=== PATIENT | male | born 1985 | race Caucasian/White ===

== ENCOUNTER 2019-11-14 18:48 | Emergency (ER) | payer BC, SELFPAY ==
[2019-11-14] VITALS (10 sets, daily range): BP systolic 112–118; BP diastolic 73–78; PULSE 60–83; RESP 12–17; TEMP 37.1; O2SAT 97–100; BMI 24.5
--- NOTE | 2019-11-14 19:08 | RAD_ITS ---
STUDY: X-RAY - RIGHT FEMUR REASON FOR STUDY: Male, 34 years old. pt fell off a ladder TECHNIQUE: 2 view(s) of the femur. COMPARISON: None. FINDINGS: The femur is intact and located. There is a patellar fracture. Metallic screw foreign body projects over the right lateral thigh soft tissues. It is unclear if this is external to the patient. RAD/Femur Min 2 Views IMPRESSION: Intact femur. Patella fracture. Electronically Signed: Tere Gallegos, at 20:02 EDT Tel , Service support ,
--- NOTE | 2019-11-14 19:08 | RAD_ITS ---
STUDY: X-RAY - RIGHT KNEE REASON FOR EXAM: Male, 34 years old. pt fell off a ladder TECHNIQUE: 3 view(s) of the knee. COMPARISON: None. FINDINGS: Patella is fractured into 2 fragments, the larger one displaced superiorly and the smaller one displaced inferiorly with wide separation. Distal femur, proximal tibia and fibula are intact and located. RAD/Knee 1 or 2 Views IMPRESSION: Widely patellar fracture. Electronically Signed: Tere Gallegos, at 20:00 EDT Tel , Service support ,
--- NOTE | 2019-11-14 19:08 | RAD_ITS ---
STUDY: X-RAY - PELVIS REASON FOR EXAM: Male, 34 years old. Trauma fall TECHNIQUE: One view of the pelvis was obtained. COMPARISON: None. FINDINGS: The bones of the pelvis are intact and located. RAD/Pelvis 1 or 2 Views IMPRESSION: Normal pelvis. Electronically Signed: Tere Gallegos, at 20:03 EDT Tel , Service support ,
[2019-11-14] MEDS: 0.9% Normal Saline 1,000 ML 999 ML IV (19:15)
[2019-11-14] MEDS: Midazolam 2 MG/2 ML Syringe IV (19:21)
[2019-11-14] MEDS: Propofol 200 MG/20 ML Vial 40 MG IV BOLUS (19:21)
[2019-11-14] MEDS: fentaNYL 100 MCG/2 ML Ampul 50 MCG IV ×2 (19:21→19:25)
[2019-11-14] MEDS: Propofol 200 MG/20 ML Vial 20 MG IV BOLUS (19:25)
--- NOTE | 2019-11-14 20:08 | ED.VIS.GEN ---
History of Present Illness Chief Complaint: Fall Informant: Patient, Family Onset: Today Maximum Severity: Moderate Narrative: Fell off ladder right knee injury he was on a ladder about 12 to 15 feet up it moved he fell striking his knee right has right knee pain no head neck chest or abdominal pain no other extremity pain brought in by EMS Holding his knee in the flexed position his patella seems to be very high riding he denies numbness weakness paresthesias to the foot just pain in the right knee he has no past history no medications Past Medical History - Allergies and Home Meds Allergies/Adverse Reactions: Allergies Penicillins Allergy (Verified 11/14/19 18:49) Hives Primary Care Physician: Haris Contreras MD [Primary Care Provider] - Past Medical History: None Smoking Status: Never smoker Review of Systems General: Denies: Chills, Fever, Sweats Eyes: Denies: Visual changes - bilaterally, Diplopia ENT: Denies: Rhinorrhea, Sore throat Cardiovascular: Denies: Chest pain, Palpitations Respiratory: Denies: Dyspnea, Cough, Dyspnea on exertion Gastrointestinal: Denies: Abdominal pain, Nausea, Vomiting, Diarrhea, Melena, Hematochezia Genitourinary: Denies: Dysuria, Hematuria, Frequency Musculoskeletal: Reports: Extremity Pain. Denies: Back pain Skin: Denies: Rash, Wounds Neurological: Denies: Headache, Weakness, Numbness Physical Exam Vital Signs/Narrative: Vital Signs Temp Pulse Pulse Pulse Pulse Pulse Pulse 11/14/19 19:56 83 11/14/19 19:36 64 11/14/19 19:25 65 11/14/19 19:06 65 60 65 70 65 65 11/14/19 18:59 80 11/14/19 18:53 98.7 F 11/14/19 18:50 98.7 F 67 Resp Resp Resp Resp Resp Resp BP 11/14/19 19:56 17 118/73 11/14/19 19:36 14 118/74 11/14/19 19:25 12 118/74 11/14/19 19:06 15 15 12 13 15 14 112/77 11/14/19 18:59 15 112/77 11/14/19 18:53 11/14/19 18:50 14 117/73 BP BP BP BP BP Pulse Ox 11/14/19 19:56 100 11/14/19 19:36 100 11/14/19 19:25 100 11/14/19 19:06 112/77 117/73 118/74 118/73 118/74 97 11/14/19 18:59 100 11/14/19 18:53 100 11/14/19 18:50 100 General: Well nourished, Well developed, No Acute Distress Head: Normocephalic, Atraumatic Eyes: Perrl, EOMI ENT: Moist mucous membranes, No rhinorrhea Neck: Supple, Nontender Cardiovascular: Regular rate, Regular rhythm, No murmurs Respiratory: No distress, CTA bilaterally, Chest nontender Abdomen: Soft, Nontender, Nondistended, Normal bowel sounds Back: Nontender, Normal Inspection Extremities: - - On exam his physical exam is unremarkable except for the right knee he is holding it in flexion the patella appears very high riding, he has intact sensation to the distal tib-fib ankle and foot he can dorsi and plantarflex move his toes he is a strong dorsalis pedis pulse feet are well-perfused is her toes, Skin: Normal color, No rash Neurological: Alert, Oriented x3, Cranial nerves II-XII grossly intact, Normal Strength, Normal Sensation Psychological: Normal affect, Normal Mood Diagnostic/Tx/Re-eval - Medical Decision Making An x-ray was obtained that shows an obvious patellar fracture he was then underwent conscious sedation protocol hyperoxygenation then he was sedated and then we were able to basically straighten his knee and relocate the patella to a more normal position, he could not extend at the knee he did have some swelling and some slight instability but could not be fully tested due to pain, he had no obvious signs of a knee dislocation rather just a patellar dislocation his tib-fib ankle and foot showed full range of motion normal neurovascular function , X-rays per radiology note shows widely displaced patellar fracture tib-fib hip unremarkable see those reports Evaluation his neurologic status remains as above he is resting comfortably placed in knee immobilizer, explained to him the concept of all the above the fracture of the see orthopedics the concept of other occult injuries to the knee there is an apparent at this time and the need to follow-up orthopedics he agrees, understands as well, he is will be remained in a knee immobilizer crutches [place] for pain and he is referred to his own orthopedic surgeon or Dr. Chawla who is on-call for orthopedics he cannot extend the knee which would be expected given the fracture and there is no obvious signs of gross knee instability Home stable Final impression right knee patellar fracture and with displacement ED Disposition - Plan for ED Patient: Diagnosis: Patellar fracture Instructions: ED FRACTURE Patella Prescriptions: Hydrocodone/Acetaminophen [[place] 5-325 Tablet] 1 ea PO 4X/DAY #20 tab Prescription Printed Referrals: Haris Contreras MD [Primary Care Provider] - Phan Chawla MD [STAFF PHYSICIAN] -
--- NOTE | 2019-11-14 21:00 | ED.RN ---
PT GIVEN WRITTEN AND VERBAL DISCHARGE INSTRUCTIONS, AND USE OF CRUTCHES AND KNEE IMMOBILIZER. EDUCATED NOT TO DRIVE UNTIL FOLLOW UP WITH ORTHOPEDIC DR. PT IV D/C AND COVERED WITH 2X2 GAUZE AND PAPER TAPE. PRESSURE APPLIED TO SITE X 2 MINUTES. PT ASSISTED IN DRESSING AND ASSISTED INTO WHEELCHAIR AND THEN PLACED IN THE CAR. PT GIVEN EMESIS BAG FOR NAUSEA. PT AND EDUCATED AND DENIES ANY FURTHER QUESTIONS.
== END 2019-11-14 21:00 | disposition home or self-care (01) ==
LOC: ED 20:00
PROVIDERS: Emergency Provider Emergency Medicine; PCP Family Medicine
DX: S82.001A Unspecified fracture of right patella, initial encounter for closed fracture (principal); W11.XXXA Fall on and from ladder, initial encounter; Y93.89 Activity, other specified; Y92.89 Other specified places as the place of occurrence of the external cause; Y99.8 Other external cause status
CPT/HCPCS: 27599; 72170; 73552; 73560; 96361; 96374; 96375; 99285; J7030; A4216

== ENCOUNTER 2019-11-24 08:49 | Day surgery (SDC) | payer BC, SELFPAY ==
[2019-11-16 15:30] VITALS: BMI 21.7
[2019-11-24] VITALS (8 sets, daily range): BP systolic 97–119; BP diastolic 54–94; PULSE 61–91; RESP 16–18; TEMP 36.3–36.8; O2SAT 97–100; BMI 22.3
[2019-11-24] MEDS: Lactated Ringers 1,000 ML 100 ML IV ×2 (09:23→14:17)
[2019-11-24] MEDS: Cefazolin 2 GM in 0.9% Normal Saline 100 ML IV (12:05)
--- NOTE | 2019-11-24 12:15 | RAD_ITS ---
STUDY: X-RAY - RIGHT KNEE REASON FOR EXAM: Male, 34 years old. ORIF RIGHT PATELLA. TECHNIQUE: 2 view(s) of the knee. COMPARISON: Comparison is made with prior examination dated 11/14/2019. FINDINGS: Intraoperative imaging provided for ORIF of the comminuted fracture of the patella. RAD/Knee 1 or 2 Views IMPRESSION: Intraoperative imaging provided for ORIF of the comminuted fractured patella. Electronically Signed: Helder Joe, at 13:20 EDT , Service support ,
[2019-11-24] MEDS: Bupiv/Epi 0.5% Mpf 30 ML Vial (13:30)
--- NOTE | 2019-11-24 14:00 | PCM.HP.BLA ---
History and Physical Date of Admission: 11/24/19 Intake Vital Signs 11/16/19 Height 6 ft 1 in 11/16/19 Weight: 165 lb 11/16/19 BMI 21.7 11/16/19 BMI 24.5 Intake Visit Reasons: RIGHT KNEE Accompanied by: Spouse Is patient in pain?: Yes Pain scale (1-10): 5 Allergies Penicillins Allergy (Verified 11/16/19 15:29) Hives Medications Hydrocodone/Acetaminophen [[place] 5-325 Tablet] 1 ea PO 4X/DAY #20 tab 11/14/19 [Rx Confirmed 11/16/19] FOR[facility]LY [facility], [facility] Social History (Updated 11/16/19 @ 16:[address] Michael Esteban DO) household members: spouse, children housing: house Smoking Status: Never smoker alcohol intake: current what type of physical activity do you participate in: none do you feel safe at home: Yes HPI RIGHT KNEE: Details: Parts of this documentation were recorded by a scribe, this documentation accurately reflects the service provided and the decisions made by me, Dr. Michael Esteban DO 11/16/19 1523. FUNMILAYO RAHMAN is a 34 year old M here today to establish as a new patient in regards to his right patella. Patient fell off of a ladder while working in his barn onto concrete. DOI: 09/13/2019 at 5pm. Patient states he landed on his feet, denies head injury. Has been applying ice packs with some relief. Patient has been taking Ibruprofen q6-7hrs. Taking Vicodin prn, prescribed from [facility]. ROS Const Reports system reviewed and no additional complaints, except as docu, Denies chills, Denies fatigue, Denies fever(s), Denies weakness Card Reports system reviewed and no additional complaints, except as docu, Denies chest pain, Denies shortness of breath Resp Denies shortness of breath GI Reports system reviewed and no additional complaints, except as docu, Denies constipation, Denies incontinent of stools, Denies loose stools, Denies nausea, Denies vomiting Reports system reviewed and no additional complaints, except as docu, Denies urinary incontinence Musc Reports system reviewed and no additional complaints, except as docu, Reports joint pain, Reports joint swelling, Denies numbness, Denies stiffness, Denies tingling Skin/Breast Reports system reviewed and no additional complaints, except as docu, Denies dry skin, Denies redness, Denies lesions, Denies new lesions, Denies non-healing lesions, Denies itching, Denies rash, Denies skin ulcer, Denies sores, Denies wounds Neuro No numbness, No tingling, No weakness Endo Denies fatigue Ortho Exam Right Knee Date of injury: 11/14/19 Skin/Wound: Yes ecchymosis, Yes swelling KNEE: developing Fracture blistering on medial knee abrasion 2cmSuperficial without sign of infection Large joint effusion with hematoma Supplemental Info 11/14/2019 X-ray right knee: Displaced transverse patella fracture Assessment & Plan Problems 1. Closed displaced transverse fracture of right patella, initial encounter S82.031A Plan Personally reviewed x-rays and educated patient has a patella fracture. Explained that it is torn all the way through. Discussed and educated he needs surgery to be fixed. Keep using ice packs and keeping leg elevated. No NSAIDs, increases risk of bleeding. Reviewed the pre-operative plans with the patient. Risks and benefits of the procedure were fully explained, including but not limited to infection, neurovascular injury, continued pain, arthritis, stiffness, need for further surgery, re-injury, DVT, PE, general risks of anesthesia, and loss of limb or life. The patient understands all the risks and does wish to proceed with written consent. Explained repair technique.He will have postoperative restrictions Limit on bending the knee, can place weight on it right awayWith the knee in extension only. Will use a Bow brace for a few weeks. All questions answered. Patient in agreement of plan. Will schedule surgery for , 11/19/2019. Coding Level of Care Code Off vis,new,level 3 Diagnoses Closed displaced transverse fracture of right patella, initial encounter S82.031A ??Encounter type: initial encounter ??Fracture morphology: transverse ??Fracture type: closed ??Laterality: right ??Fracture alignment: displaced I have re-examined the patient. There are no clinical changes since date of exam
--- NOTE | 2019-11-24 14:00 | PCM.DC.ORTHO ---
Discharge Diet: No Restrictions Keep extremity elevated above heart level: Operative Extremity Call your doctor if you observe: Shortness of breath Additional Instructions: Ice and elevate next 7 days. Leave dressing on clean and dry for 72 hours postop. Remove dressing 72 hours postop for per first postoperative shower, use antibacterial soap and warm water may run over incision. Do not submerge incision in tub. There may be some clearish red drainage for several days. After shower reapply a dry dressing over incision. Okay to leave open to air if not draining but should not have incision rubbing on knee immobilizer without dressing between. encourage ankle and toe range of motion. Encourage active straight leg raise with knee immobilizer on. If you cannot perform active straight leg raise that is okay but abdon quad with leg extension is also helpful. Take prescriptions as prescribed. Do not bend knee until follow-up visit with Dr. Esteban. May remove knee immobilizer while leg is elevated and rested and in extension. If any questions please call I can always see you sooner than your postoperative appointment if needed. Allergies/Adverse Reactions: Allergies Penicillins Allergy (Verified 11/24/19 09:13) Hives Medications to take at Discharge Hydrocodone/Acetaminophen [[place] 5-325 Tablet] 1 ea PO 4X/DAY #20 tab 11/14/19 Acetaminophen [Tylenol Extra Strength] 1,000 mg PO Q6H #50 tab 11/24/19 Aspirin [Aspirin, Baby] 81 mg PO BID #30 tab 11/24/19 Cephalexin [Keflex] 1,000 mg PO Q8 #4 cap 11/24/19 Oxycodone [Oxyir] 5 mg PO Q4H PRN PRN #50 tab 11/24/19 The following prescriptions were given: Aspirin [Aspirin, Baby] 81 mg PO BID #30 tab Transmission Status: Sent to [facility] Cephalexin [Keflex] 1,000 mg PO Q8 #4 cap Transmission Status: Sent to [facility] Oxycodone [Oxyir] 5 mg PO Q4H PRN PRN #50 tab PRN Reason: Pain Score 6-10/10 Transmission Status: Sent to [facility] Acetaminophen [Tylenol Extra Strength] 1,000 mg PO Q6H #50 tab Transmission Status: Sent to [facility] Primary Care Physician: Care Physician,No Primary [Primary Care Provider] - Test Results: Test results from this visit will be discussed in further detail at your follow-up appointment, if applicable. Please Follow Up With: Michael Esteban DO - 2 weeks postop
--- NOTE | 2019-11-24 14:09 | PCM.OPRPT ---
Report of Operation Date of Procedure: 11/24/19 Description of Surgical Findings:: Preoperative diagnosis: Right knee transverse patella fracture Postoperative diagnosis: Right knee transverse patellar fracture with comminution of inferior fragment Procedure: ORIF patella Implant: Arthrex partially threaded cannulated 4 -0 blunt tipped compression screws with fiber tape tension band and cerclage wire Anesthesia: Spinal with postoperative femoral block EBL: 175 Tourniquet 60 minutes 300 mmHg Complications: None Condition: Stable to PACU Indication for procedure: 34-year-old male sustained a fall off of a ladder without landing directly on his knee he did have a forced extension moment upon landing sustaining a comminuted transverse patella fracture with retraction he did proceed to the emergency room department where a mid manipulation of his knee was performed by the ER he did follow-up in the office however he was significantly swollen and it was determined best to delay surgery a bit and work on swelling reduction with an iceman machine and he did do this and start swelling did progress nicely down we did discuss operative intervention for his injury which included ORIF risk benefits and alternatives were reviewed including risk of bleeding infection nerve, artery, bone, tissue damage, blood clot need for further surgery and continued pain. Procedure: Patient was met the preoperative holding area once again the operative extremity was then identified by both patient and physician was marked patient met by anesthesia spinal was placed by anesthesia patient brought back to the operating room transfer the operative table supine position a well-padded tourniquet was placed on the right upper thigh he was prepped and draped in the usual sterile fashion and a timeout was called to ensure the proper patient procedure extremity being contemplated. An Esmarch was used to exsanguinate the extremity and the tourniquet was inflated to 300 mmHg. A standard midline incision was performed through the skin and subcutaneous tissue blunt dissection was carried between the subcutaneous tissue and the joint capsule the medial and lateral lateral retinaculum were completely split from the injury along the joint line the patella fracture was with large amount of hematoma which was removed after hematoma was removed thorough irrigation of the knee was performed intra-articular investigation of the knee did not reveal any ACL injury or cartilage pathology medial and lateral collateral ligaments were felt to be stable up upon examination or anesthesia as well as ACL and PCL it was noted however that the inferior fragment of the patella was highly comminuted. We were still able to proceed with reduction of the fracture with palpation of the articular surface with a gloved finger and placement of 2 partially threaded 4 oh cannulated screws from distal to superior standard technique with a K wire and over drilling these and placing the cannulated screws over top of the K wires with compression checked under fluoroscopy a fiber tape was then passed through the cannulated screws and tied in a [id number] fashion this did provide excellent fixation due to the comminution however room a cerclage fiber #2 FiberWire was placed around the patella and the medial and lateral retinaculum was also repaired with [id number] FiberWire. 0 Vicryl was used to repair bursal tissue on top of the fiber tape to aid in coverage of knots. The knee was thoroughly irrigated with several liters of irrigation and was closed with 2-0 Vicryl in the subcutaneous tissues followed by logan in the skin followed by a Mepilex Ag dressing followed by a thigh-high ANMOL hose and a knee immobilizer. Patient tolerated procedure well all counts were correct patient brought back to the PACU in stable condition he will follow-up in 2 weeks he will be immobilized in extension until follow-up
[2019-11-24] MEDS: Cefazolin 1 GM/50 ML BAG IV (14:45)
== END 2019-11-24 16:52 | disposition home or self-care (01) ==
LOC: SDC 08:52 → AC 08:52
PROVIDERS: Anesthesiology; Referring Provider Orthopaedic Surgery; Visit Provider Orthopaedic Surgery
PROC: (CPT 27524; principal; 2019-11-24 11:15)
DX: S82.031A Displaced transverse fracture of right patella, initial encounter for closed fracture (principal); Z11.59 Encounter for screening for other viral diseases; W11.XXXA Fall on and from ladder, initial encounter; Y93.89 Activity, other specified; Y92.71 Barn as the place of occurrence of the external cause; Y99.8 Other external cause status
CPT/HCPCS: 01392; 27524; 73560; 76000; 87635; C1713; J7120; J2405; U0003

== ENCOUNTER 2020-01-11 08:30 | Outpatient (RCR) ==
[2019-12-07 07:43] VITALS: BMI 22.3
--- NOTE | 2019-12-28 09:23 | HP.PTEVAL ---
Patient's Visit Information FUNMILAYO RAHMAN is a 34 year old M referred to Physical Therapy by Dr. Michael Esteban DO with a diagnosis of ORIF Right Patella. Date of Evaluation: 12/28/19 Physical Therapist: Gertrude Streeter DPT - Visit Plan Frequency: 2x /Week Duration: 6 Weeks Plan: 1x a week for 4 weeks- focus on ROM- with home exercise program then when full ROM allowed by MD and strength order progress to 2-3x4 weeks for functional mobility. - Subjective Fell off a ladder Nov 13- and then Dr. Wen performed and ORIF of right patella 11/24/2019- outpatient surgery- headed home-NWB for a few days- started weight bearing while using crutches with straight leg. Saw 12/20 who gave him restrictions of 30 while walking and 60 while ambulating. He can bend 60 degrees without pain and can get there easily now- took a lot of work to get there. Pain level in the knee is not bad. Ibuprofen 2x a days. Worst: 2/10 Reports dull and achy with rare sharp shooting pains- hurts the worst at night- Sleep: disturbed- does not wear brace- pain is general around the knee cap- no radiating pain- No N/T in the toes. Best: 03/13 Nothing really aggravates it- Eases: sitting down and relaxing and ice. 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 This is his first major injury. Last x-rays were Saturday. PMHx: none Meds: Ibuprofen as needed. - Objective Posture: Fh, RS can correct with verbal cues. Gait: antalgic- decreased stance on the right LE with poor heel/toe pattern due to TROM Brace locked in extension. Palpation: not tender to touch. Observation: no s/s of infection- incision healing well. Girth: Left Patella: 42 cm 6 above: 45.5 cm Right Patella: 38 cm 6 above: 49 cm. HR/TR: able without incidence or discomfort. SLS: 5 sec then LOB on right 30 sec easily on left. Strength: Ankle: 5/5, Quad set: visible SLR: minimal lag, Hip: 4+/5. Sensation: diminished over incision- intact to gross touch - Goals Goal 1:: Patient will be I with HEP and progression Goal Time Frame: 4-6 Weeks Goal 2:: Patient will ambulate >300 feet with a normalized gait pattern Goal Time Frame: 4-6 Weeks Goal 3:: Patient will SLS for 30 sec without LOB Goal Time Frame: 4-6 Weeks Goal 4:: Patient quad will be within 1 cm of left Goal Time Frame: 4-6 Weeks - Rehabilitation Potential Physical Therapy Diagnosis: Patient presents with hypomobility- he has decreased ROM,strength, flex and muscular endurance leading to abnormal gait and increased and difficulty with ADL's. Rehabilitation Potential: Fair - Anticipated Interventions Patient/Client Instruction: Educate patient on: Benefits of Fitness Program Therapeutic Exercise to Include: Strength training, Endurance training, Balance training, Coordination, Agility training, Body mechanics, Postural training, Flexibilty training, Gait and locomotor training, Neuromotor development, Passive ROM, Active ROM, Dynamic Lumbar Stabilization, Scapular Strength/Stabilization For the Purpose of:: To improve muscle performance and motor function TENS: Yes Cryotherapy (ice pack, ice massage): Yes Thermo therapy (hot pack): Yes Ultrasound (thermal/non thermal): No Thank you for the opportunity to evaluate your patient. For Medicare and Medicare HMO plans, please review the plan of care and approve it. It will need to be FAXED BACK to us at [phone] for Medicare purposes. For Medicare only, by signing this I certify the plan of care. Please let me know if there are questions or concerns regarding this plan of care. Physician Signature: Date:
--- NOTE | 2019-12-28 09:25 | HP.PTEVAL ---
Patient's Visit Information FUNMILAYO RAHMAN is a 34 year old M referred to Physical Therapy by Dr. Michael Esteban DO with a diagnosis of ORIF Right Patella. Date of Evaluation: 12/28/19 Physical Therapist: Gertrude Streeter DPT - Visit Plan Frequency: 2x /Week Duration: 6 Weeks Plan: Per MD: Flexion 30 with ambulation, 60 at rest x2 weeks then Flexion 60 with ambulation 90 at rest for 2 weeks (12/21/2019). 1x a week for 4 weeks- focus on ROM- with home exercise program then when full ROM allowed by MD and strength order progress to 2-3x4 weeks for functional mobility. - Subjective Fell off a ladder Nov 13- and then Dr. Wen performed and ORIF of right patella 11/24/2019- outpatient surgery- headed home-[facility] for a few days- started weight bearing while using crutches with straight leg. Saw 12/20 who gave him restrictions of 30 while walking and 60 while ambulating. He can bend 60 degrees without pain and can get there easily now- took a lot of work to get there. Pain level in the knee is not bad. Ibuprofen 2x a days. Worst: 2/10 Reports dull and achy with rare sharp shooting pains- hurts the worst at night- Sleep: disturbed- does not wear brace- pain is general around the knee cap- no radiating pain- No N/T in the toes. Best: 1/10 Nothing really aggravates it- Eases: sitting down and relaxing and ice. 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 This is his first major injury. Last x-rays were Saturday. PMHx: none Meds: Ibuprofen as needed. - Objective Posture: Fh, RS can correct with verbal cues. Gait: antalgic- decreased stance on the right LE with poor heel/toe pattern due to TROM Brace locked in extension. Palpation: not tender to touch. Observation: no s/s of infection- incision healing well. Girth: Left Patella: 42 cm 6 above: 45.5 cm Right Patella: 38 cm 6 above: 49 cm. HR/TR: able without incidence or discomfort. SLS: 5 sec then LOB on right 30 sec easily on left. Strength: Ankle: 5/5, Quad set: visible SLR: minimal lag, Hip: 4+/5. Sensation: diminished over incision- intact to gross touch - Goals Goal 1:: Patient will be I with HEP and progression Goal Time Frame: 4-6 Weeks Goal 2:: Patient will ambulate >300 feet with a normalized gait pattern Goal Time Frame: 4-6 Weeks Goal 3:: Patient will SLS for 30 sec without LOB Goal Time Frame: 4-6 Weeks Goal 4:: Patient quad will be within 1 cm of left Goal Time Frame: 4-6 Weeks - Rehabilitation Potential Physical Therapy Diagnosis: Patient presents with hypomobility- he has decreased ROM,strength, flex and muscular endurance leading to abnormal gait and increased and difficulty with ADL's. Rehabilitation Potential: Fair - Anticipated Interventions Patient/Client Instruction: Educate patient on: Benefits of Fitness Program Therapeutic Exercise to Include: Strength training, Endurance training, Balance training, Coordination, Agility training, Body mechanics, Postural training, Flexibilty training, Gait and locomotor training, Neuromotor development, Passive ROM, Active ROM, Dynamic Lumbar Stabilization, Scapular Strength/Stabilization For the Purpose of:: To improve muscle performance and motor function TENS: Yes Cryotherapy (ice pack, ice massage): Yes Thermo therapy (hot pack): Yes Ultrasound (thermal/non thermal): No Thank you for the opportunity to evaluate your patient. For Medicare and Medicare HMO plans, please review the plan of care and approve it. It will need to be FAXED BACK to us at [phone] for Medicare purposes. For Medicare only, by signing this I certify the plan of care. Please let me know if there are questions or concerns regarding this plan of care. Physician Signature: Date:
--- NOTE | 2020-03-09 11:06 | HP.PT.NRP ---
FUNMILAYO RAHMAN was seen in my office for initial evaluation on 12/28/19. The following Plan of Care was established for this patient: Initial Frequency: 2x /Week Initial Duration: 6 Weeks Patient/Client Instruction: Educate patient on: Benefits of Fitness Program Therapeutic Exercise to Include: Strength training, Endurance training, Balance training, Coordination, Agility training, Body mechanics, Postural training, Flexibilty training, Gait and locomotor training, Neuromotor development, Passive ROM, Active ROM, Dynamic Lumbar Stabilization, Scapular Strength/Stabilization For the Purpose of:: To improve muscle performance and motor function TENS: Yes Cryotherapy (ice pack, ice massage): Yes Thermo therapy (hot pack): Yes Ultrasound (thermal/non thermal): No This patient was last seen in our office . Pertinent comments regarding their Physical therapy will appear below: Patient called to report exposed to COVID-19 and has not returned. Appropriate to be d/c and return to MD for further evaluation. At this point I will be discontinuing this patient from physical therapy. I would be happy to see this patient again in the future if found appropriate by the physician. Thank you! Gertrude Streeter DPT
== END 2020-01-11 19:00 | disposition home or self-care (01) ==
LOC: PT 08:30
DX: Z98.890 Other specified postprocedural states (principal)
CPT/HCPCS: 97110; 97161